=== PATIENT | female | born 1945 | race Hispanic/Latino ===

== ENCOUNTER 2017-05-03 12:34 | Emergency (ER) | payer MEDICARE ==
[2017-05-03 12:55] VITALS: BP 108/59; PULSE 68; RESP 20; TEMP 98.1; O2SAT 96
--- NOTE | 2017-05-03 13:09 | ED PDOC ---
Arrival/HPI - General Chief Complaint: Lower Extremity Problem/Injury Time Seen by Provider: 05/03/17 12:37 Historian: Patient, Spouse - History of Present Illness Time/Duration: Prior to Arrival Symptom Onset: Sudden Symptom Course: Improving Severity Level: Severe Activities at Onset: Rest Associated Symptoms (Text): 05/03/17 13:08 Patient scratched varicosity on her right bojorquez which began to bleed uncontrollably. Past Medical History - Cardiac Hx Cardiac Disorders: Yes Hx Hypertension: Yes - Pulmonary Hx Respiratory Disorders: No - Neurological Hx Neurological Disorder: No - HEENT Hx HEENT Disorder: No - Renal Hx Renal Disorder: No - Endocrine/Metabolic Hx Endocrine Disorders: No - Hematological/Oncological Hx Blood Disorders: No - Integumentary Hx Dermatological Disorder: No - Musculoskeletal/Rheumatological Hx Musculoskeletal Disorders: No - Gastrointestinal Hx Gastrointestinal Disorders: No - Genitourinary/Gynecological Hx Genitourinary Disorders: No - Psychiatric Hx Psychophysiologic Disorder: No Hx Substance Use: No - Anesthesia Hx Anesthesia: No Family/Social History - Physician Review Nursing Documentation Reviewed: Yes Family/Social History: Unknown Family HX Smoking Status: Light Smoker < 10 Cigarettes Daily Hx Alcohol Use: Yes Frequency of alcohol use: Socially Hx Substance Use: No Allergies/Home Meds Allergies/Adverse Reactions: Allergies No Known Allergies Allergy (Verified 05/03/17 12:53) Home Medications: Home Meds Medication Instructions Recorded Confirmed Aspirin [Aspirin Chewable] 81 mg PO DAILY 05/03/17 05/03/17 Atenolol [Tenormin] 50 mg PO DAILY 05/03/17 05/03/17 Simvastatin [Zocor] 40 mg PO DAILY 05/03/17 05/03/17 Review of Systems - Physician Review All systems were reviewed & negative as marked: Yes Physical Exam Vital Signs Temp Pulse Resp BP Pulse Ox 05/03/17 12:47 98.1 F 68 20 108/59 L 96 Temperature: Afebrile Blood Pressure: Normal Pulse: Regular Respiratory Rate: Normal Appearance: Positive for: Well-Appearing, Non-Toxic, Comfortable Pain Distress: None Mental Status: Positive for: Alert and Oriented X 3 - Systems Exam Lower Extremity: Present: NORMAL PULSES, Normal ROM, Neurovascularly Intact, Other (Right bojorquez varicosity currently with bleeding controlled). No: Edema, CALF TENDERNESS, Cyanosis, Tenderness, Swelling, Deformity Medical Decision Making ED Course and Treatment: 05/03/17 13:20 Pressure dressing has controlled the bleeding. Patient is ambulatory in the department with no further bleeding. Discharge home. Follow-up with PMD. Follow up in ER as needed. Disposition/Present on Arrival - Present on Arrival Any Indicators Present on Arrival: No History of DVT/PE: No History of Uncontrolled Diabetes: No Urinary Catheter: No History of Decub. Ulcer: No History Surgical Site Infection Following: None - Disposition Have Diagnosis and Disposition been Completed?: Yes Diagnosis: Bleeding from varicose vein Disposition: HOME/ ROUTINE Disposition Time: 13:20 Patient Plan: Discharge Condition: IMPROVED Discharge Instructions (ExitCare): Varicose Veins (ED) Additional Instructions: Pressure dressing. Elevation. Follow-up with PMD. Follow-up in ER as needed. Forms: [employer] ([place])
== END 2017-05-03 13:28 | disposition home or self-care (01) ==
LOC: ED 12:34
DX: I83.891 Varicose veins of right lower extremity with other complications (principal)